=== PATIENT | male | born 1950 | race Caucasian/White ===

== ENCOUNTER 2019-02-09 09:10 | Outpatient (CLI) | payer MEDICARE | END 2019-02-09 09:11 | disposition home or self-care (01) | LOC: DTY/OP 09:10 | PROVIDERS: ATTEND Surgery | DX: E66.01 Morbid (severe) obesity due to excess calories (principal) | CPT/HCPCS: 97802 ==

== ENCOUNTER 2019-04-07 06:38 | Outpatient (CLI) | payer MEDICARE ==
--- NOTE | 2019-04-07 11:29 | RAD ---
EXAM: Chest PA and lateral: HISTORY: Preoperative exam COMPARISON: None FINDINGS: Heart: Normal cardiac silhouette Aorta: Atherosclerosis of the aortic knob Pulmonary vessels: Normal Costophrenic angles: Costophrenic angles are clear. Lungs: No consolidation or masses. Pneumothorax: No pneumothorax Osseous structures: No osseous abnormalities IMPRESSION: No acute cardiopulmonary process. Atherosclerosis of the aortic knob.
[2019-04-07 11:33] LABS: #Eosinphils 0.1 thou/uL (0.0-0.7); #Lymphocytes 1.2 thou/uL (1.20-3.40); #Monocytes 0.3 thou/uL (0.11-0.59); #Neutrophils 2.5 thou/uL (1.40-6.50); %Basophils 0.6 % (0.0-1.0); %Eosinophils 3.5 % (0.0-10.0); %Monocytes 7.6 % (0.0-10.0); %Neutrophils 60.3 % (42.0-75.0); Hemoglobin 15.3 g/dL (14.0-18.0); Mean Corpuscular HGB CONC 34.2 g/dL (32.0-36.0); Mean Corpuscular Hemoglobin 33.9 pg (27.0-31.0); Mean Corpuscular Volume 98.9 fL (78.0-98.0); Mean Platelet Volume 6.8 fL (7.4-10.4); Platelet Count 174 thou/uL (130-400); RBC Distribution Width 12.8 % (11.5-14.5); Red Blood Cell (RBC) Count 4.53 mill/uL (4.70-6.10); White Blood Cell (WBC) Count 4.2 thou/uL (4.8-10.8)
[2019-04-07 11:41] LABS: Hemoglobin A1c 6.1 % (4.0-6.0)
[2019-04-07 12:09] LABS: ALT (SGPT) 39 U/L (8-55); AST (SGOT) 22 U/L (5-34); Albumin 4.9 g/dL (3.4-4.8); Alkaline Phosphatase 105 U/L (40-110); Anion Gap 14 mmol/L (10-20); BUN (Urea Nitrogen) 34 mg/dL (8.4-25.7); Bilirubin, Direct 0.1 mg/dL (0.1-0.3); Bilirubin, Total 0.4 mg/dL (0.2-1.2); Calc. Creatinine Clearance 0 mL/min (70-130); Calcium 9.6 mg/dL (7.8-10.44); Carbon Dioxide 20 mmol/L (23-31); Chloride 109 mmol/L (98-107); Estimated GFR-MDRD 50; Globulin 2.4 g/dL (2.4-3.5); Glucose 101 mg/dL (80-115); Potassium 4.4 mmol/L (3.5-5.1); Protein, Total 7.3 g/dL (5.8-8.1); Sodium 139 mmol/L (136-145)
== END 2019-04-07 06:39 | disposition home or self-care (01) ==
LOC: LABBT 06:38
PROVIDERS: ATTEND Surgery
DX: Z01.818 Encounter for other preprocedural examination (principal); E66.01 Morbid (severe) obesity due to excess calories; I70.0 Atherosclerosis of aorta
CPT/HCPCS: 71046; 80053; 80076; 83036; 85025

== ENCOUNTER 2019-04-07 10:00 | Inpatient (IN) | payer MEDICARE ==
[2019-04-07 10:31] VITALS: BMI 42.0
[2019-04-25] MEDS ORDERED: Heparin 5,000 UNITS/ML VIAL ONE (08:14)
[2019-04-25] MEDS ORDERED: CEFAZOLIN 1 GM VIAL ONE (08:14)
[2019-04-25] MEDS ORDERED: Bupivacaine 0.25% HCL 30 ML VIAL ONE (08:49)
[2019-04-25] MEDS ORDERED: Fentanyl 100 MCG/2 ML VIAL ONE ×2 (08:56→11:04)
[2019-04-25] MEDS ORDERED: Promethazine HCl 25 MG/ML VIAL IM PRN ×3 (09:54→11:19)
[2019-04-25] MEDS ORDERED: Ondansetron HCl/PF 4 MG/2 ML Vial IVP PRN (09:54)
[2019-04-25] MEDS ORDERED: Promethazine HCl 25 MG/ML VIAL SLOW IVP PRN (09:54)
[2019-04-25] MEDS ORDERED: Insulin Regular 300 UNITS/3 ML VIAL SC PRN (10:31)
[2019-04-25] MEDS ORDERED: Dextrose 50% Abboject 50 ML SYRINGE SLOW IVP PRN (10:31)
[2019-04-25] MEDS ORDERED: hydrALAZINE 20 MG/ML VIAL SLOW IVP PRN (10:31)
[2019-04-25] MEDS ORDERED: Ondansetron PF 4 MG/2 ML Vial IVP PRN (10:31)
[2019-04-25] MEDS ORDERED: Hydrocodone-Acetamin 15 ML UDCUP PO PRN (10:31)
[2019-04-25] MEDS ORDERED: Dextrose 5% in Water 1,000 ML IV PRN (10:31)
[2019-04-25] MEDS ORDERED: diphenhydrAMINE 50 MG/ML VIAL IVP PRN ×2 (10:31→11:19)
[2019-04-25] MEDS ORDERED: Promethazine HCl 25 MG/ML VIAL ONE (10:38)
[2019-04-25] MEDS ORDERED: Zolpidem Tartrate 5 MG TAB PO PRN (11:19)
[2019-04-25] MEDS ORDERED: Naloxone HCl 0.4 mg/ml Vial IV PRN (11:19)
[2019-04-25] MEDS ORDERED: fentaNYL Citrate/PF 2,000 MCG in Sodium Chloride 0.9% 60 ML IV PRN (11:19)
[2019-04-25] MEDS ORDERED: diphenhydrAMINE 50 MG/ML VIAL IM PRN (11:19)
[2019-04-25] MEDS ORDERED: diphenhydrAMINE 25 MG CAP PO PRN (11:19)
[2019-04-25] MEDS ORDERED: Communication Order-Pharmacy FS SCH (11:30)
[2019-04-25] MEDS ORDERED: Ondansetron PF 4 MG/2 ML Vial ONE ×2 (11:43→13:47)
[2019-04-25] MEDS: 1/2 NS w/KCL 20 mEq 1,000 ML IV SCH ×2 (13:22→14:41)
[2019-04-25] MEDS ORDERED: Rocuronium Bromide 10 MG/ML (10ML VIAL) ONE (13:47)
[2019-04-25] MEDS ORDERED: PHENYLEPHRINE-NS 100 MCG/ML 10 ML SYRINGE ONE (13:47)
[2019-04-25] MEDS ORDERED: Glycopyrrolate 0.2 MG/ML 5 ML SYRINGE ONE (13:47)
[2019-04-25] MEDS ORDERED: ePHEDrine/0.9% NaCl/PF SYRINGE 50 mg/10 ml ONE (13:47)
[2019-04-25] MEDS ORDERED: Lidocaine 1% PF 5 ML VIAL ONE (13:47)
[2019-04-25] MEDS ORDERED: Succinylcholine Chloride 20 MG/ML 10 ml SYRINGE FS ONE (13:47)
[2019-04-25] MEDS ORDERED: PROPOFOL 200 MG/20 ML VIAL ONE (13:47)
[2019-04-25] MEDS ORDERED: Metoclopramide HCl 10 MG/2 ML VIAL ONE (13:47)
[2019-04-25] MEDS: CEFAZOLIN 2 GM in Premix Bag 1 BAG IVPB SCH ×2 (14:40→23:58)
[2019-04-25] MEDS: Ondansetron PF 4 MG/2 ML Vial IVP PRN (22:10)
[2019-04-26] MEDS: 1/2 NS w/KCL 20 mEq 1,000 ML IV SCH ×2 (02:48→08:39)
[2019-04-26] MEDS: Ondansetron PF 4 MG/2 ML Vial IVP PRN ×2 (04:06→17:25)
[2019-04-26 06:15] LABS: #Lymphocytes 0.7 thou/uL (1.20-3.40); #Monocytes 0.5 thou/uL (0.11-0.59); %Basophils 0.1 % (0.0-1.0); %Eosinophils 0.2 % (0.0-10.0); %Lymphocytes 8.9 % (21.0-51.0); %Monocytes 6.1 % (0.0-10.0); %Neutrophils 84.6 % (42.0-75.0); Mean Corpuscular HGB CONC 32.6 g/dL (32.0-36.0); Mean Corpuscular Hemoglobin 32.2 pg (27.0-31.0); Mean Platelet Volume 6.1 fL (7.4-10.4); Platelet Count 176 thou/uL (130-400); RBC Distribution Width 12.8 % (11.5-14.5); Red Blood Cell (RBC) Count 4.03 mill/uL (4.70-6.10); White Blood Cell (WBC) Count 8.2 thou/uL (4.8-10.8)
[2019-04-26 06:36] LABS: Anion Gap 9 mmol/L (10-20); BUN (Urea Nitrogen) 19 mg/dL (8.4-25.7); Calc. Creatinine Clearance 109 mL/min (70-130); Carbon Dioxide 26 mmol/L (23-31); Chloride 105 mmol/L (98-107); Estimated GFR-MDRD 61; Glucose 141 mg/dL (80-115); Potassium 4.5 mmol/L (3.5-5.1); Sodium 135 mmol/L (136-145)
--- NOTE | 2019-04-26 07:54 | OP ---
DATE OF PROCEDURE: 04/25/2019 PREOPERATIVE DIAGNOSIS: Morbid obesity. PROCEDURES PERFORMED: Laparoscopic sleeve gastrectomy, esophagogastroscopy. INDICATIONS: A 69-year-old male, who has been morbidly obese for many years attempted multiple weight loss programs without success. FINDINGS: 38-Portuguese bougie used. DESCRIPTION OF PROCEDURE: After informed consent was obtained, the patient was taken to the operating room and given general endotracheal anesthesia. He was placed in supine position. Abdomen was prepped and draped in usual fashion. Local anesthesia was infiltrated subcutaneously and deep. A 12 mm incision was performed approximately 8 inches above the xiphoid slightly to the left. Veress needle was inserted and drop test was performed. Pneumoperitoneum was created to a volume of 2 L of carbon dioxide. Utilizing a bladeless 12 mm trocar and 0-degree laparoscope, direct visual entry into the abdominal cavity was performed. Pneumoperitoneum was created to a pressure of 15 mmHg. The patient was placed in steep reverse Trendelenburg position. Deanna liver retractor was inserted and left lobe of liver retracted superiorly. The pylorus was identified. A 12 mm port was placed on the right beneath it and two 12s were placed on the left subcostal. The omentum was taken off the greater curvature 5 cm from the pylorus utilizing the LigaSure. Short gastrics divided with the LigaSure. Left crura defined with LigaSure. A 38-Portuguese bougie inserted, directed into the antrum. The linear 60 mm green load stapler was used to divide the antrum to the bougie, gold load along the bougie, and a series of blues through the angle of His. Intraoperative endoscopy was performed. The video endoscope inserted under direct vision. The staple line inspected. There was no bleeding. Staple line then tested by inflating the new stomach with pressurized air under water. There was no air leak. Stomach decompressed. Scope removed. The remnant stomach removed from the abdomen through the left lateral port site. The fascia was closed with 0 Vicryl suture and the GraNee needle. Trocars and retractors were removed. Skin was closed with interrupted 4-0 Rapide. Dermabond was applied. The patient tolerated the procedure well and was transferred to Recovery in good condition. Sponge and needle count verified correct x2. Job ID: [id number]
--- NOTE | 2019-04-26 08:01 | RAD ---
EXAM: Single contrast Upper GI HISTORY: Status post gastric sleeve procedure. Evaluate for enteric leak. COMPARISON: None EXPOSURE: 9 seconds; 126.37 Gy per centimeter squared FINDINGS: A single contrast upper GI was performed. Esophageal motility is normal. No mucosal lesions are seen in the esophagus. No extrinsic compression on the esophagus is seen. No hiatal hernia. No gastroesophageal reflux. Patient is status post gastric sleeve. The contrast passes through the stomach into the duodenum without difficulty. The duodenum is normal in appearance without focal abnormality. IMPRESSION: Status post gastric sleeve without evidence of complication.
[2019-04-26] MEDS: Enoxaparin Sodium 40 MG/0.4 ML SYRINGE SC SCH (08:39)
[2019-04-26] MEDS: Pantoprazole 40 MG VIAL IVP SCH (08:39)
[2019-04-26] MEDS ORDERED: Zolpidem Tartrate 5 MG TAB PO PRN (13:42)
[2019-04-26] MEDS: Lorazepam 1 MG TAB PO SCH ×2 (13:58→21:23)
[2019-04-26] MEDS: Hydrocodone-Acetamin 15 ML UDCUP PO PRN ×3 (14:00→22:33)
--- NOTE | 2019-04-26 18:50 | PRG ---
DATE OF SERVICE: 04/26/2019 SUBJECTIVE: The patient is having quite a bit of pain in the left upper quadrant incision, is having difficulty controlling that. OBJECTIVE: VITAL SIGNS: Temperature is 99, pulse 92, blood pressure 160/82. GENERAL: He looks fine. He is awake, alert. His incisions look good. LABORATORY DATA: White count is 8.2, hemoglobin and hematocrit of 13 and 39, platelet count 176. Electrolytes are fine. ASSESSMENT: Expected postop pain, but more than average. PLAN: The plan is to keep him an extra day. Continue liquid diet. Probable discharge tomorrow. Job ID: [id number]
[2019-04-26 23:53] VITALS: TEMP 98.3
[2019-04-27] MEDS ORDERED: Ondansetron PF 4 MG/2 ML Vial ONE (06:27)
[2019-04-27] MEDS: Pantoprazole 40 MG VIAL IVP SCH (08:45)
[2019-04-27] MEDS: Enoxaparin Sodium 40 MG/0.4 ML SYRINGE SC SCH (08:45)
[2019-04-27] MEDS: Lorazepam 1 MG TAB PO SCH (08:45)
[2019-04-27] MEDS ORDERED: Lisinopril 20 MG TAB PO SCH (09:00)
[2019-04-27] MEDS ORDERED: Triamterene/Hydrochlorothiazide 37.5 mg/25 mg Tablet PO SCH (09:00)
[2019-04-27] MEDS ORDERED: Escitalopram Oxalate 20 mg Tablet PO SCH (09:00)
[2019-04-27] MEDS: Hydrocodone-Acetamin 15 ML UDCUP PO PRN (12:46)
[2019-04-27 12:49] VITALS: BP 178/98
--- NOTE | 2019-04-27 13:22 | DIS ---
DATE OF ADMISSION: 04/25/2019 DATE OF DISCHARGE: 04/27/2019 DISCHARGE DIAGNOSIS: Morbid obesity. PROCEDURES PERFORMED: Laparoscopic sleeve gastrectomy, intraoperative esophagogastroscopy, and postoperative Gastrografin swallow. HOSPITAL COURSE: The patient was admitted, taken to the operating room, where he underwent a sleeve. Postoperatively, he did well. He did have a lot of nausea early on. So, he had difficulty drinking fluids. His x-ray was fine. He was kept an extra day and now, he is tolerating liquids well. His pain is controlled on p.o. medications. He is discharged home on hydrocodone and Zofran. He will follow up with me in 2 weeks. Job ID: [id number]
== END 2019-04-27 12:35 | disposition home or self-care (01) | DRG 621 ==
LOC: SURG A 04-25 07:01
PROVIDERS: ADMIT Surgery; ATTEND Surgery
PROC: 0DB64Z3 Excision of Stomach, Percutaneous Endoscopic Approach, Vertical (ICD-10-PCS; principal; 2019-04-25)
PROC: 0DJ08ZZ Inspection of Upper Intestinal Tract, Via Natural or Artificial Opening Endoscopic (ICD-10-PCS; 2019-04-25)
DX: E66.01 Morbid (severe) obesity due to excess calories (principal); Z68.41 Body mass index [BMI] 40.0-44.9, adult; I10 Essential (primary) hypertension; E78.5 Hyperlipidemia, unspecified; G47.33 Obstructive sleep apnea (adult) (pediatric); G40.909 Epilepsy, unspecified, not intractable, without status epilepticus; E11.9 Type 2 diabetes mellitus without complications; F41.9 Anxiety disorder, unspecified; N40.0 Benign prostatic hyperplasia without lower urinary tract symptoms; R11.0 Nausea
CPT/HCPCS: 36415; 36416; 74241; 80048; 85025; 88307; 88312; C9113; J0131; J0360; J0690; J1644; J1650; J2001; J2405; J2550; J2704; J2765; J3010; J3480; S0020

== ENCOUNTER 2019-05-16 13:41 | Day surgery (SDC) | payer MEDICARE ==
[2019-05-16] MEDS ORDERED: Sodium Chloride 0.9% 20 ML ONE (13:47)
[2019-05-16] MEDS ORDERED: Ondansetron PF 4 MG/2 ML Vial SLOW IVP PRN (13:53)
[2019-05-16] MEDS ORDERED: Sodium Chloride 0.9% 1,000 ML IV SCH (14:00)
[2019-05-16] MEDS ORDERED: Sodium Chloride 0.9% 2,000 ML IV SCH (14:00)
[2019-05-16] MEDS ORDERED: Multivitamins, Adult 10 ML in Sodium Chloride 0.9% 500 ML IV SCH (14:00)
[2019-05-16] MEDS ORDERED: Multivitamins, Adult 10 ML in Sodium Chloride 0.9% 1,000 ML IV SCH (14:00)
[2019-05-16 15:45] VITALS: TEMP 97.6
[2019-05-16 17:20] VITALS: BP 131/60
== END 2019-05-16 17:37 | disposition home or self-care (01) ==
LOC: ONC/OP 13:41
PROVIDERS: ATTEND Surgery
DX: E86.0 Dehydration (principal)
CPT/HCPCS: 96361; 96365; 96366; J2405; J7050